=== PATIENT | female | born 1950 | race Caucasian/White ===

== ENCOUNTER 2023-03-08 09:58 | Outpatient (OUT) | payer MEDICARE, OTHER, SELFPAY ==
--- NOTE | 2023-03-08 09:59 | VEIN_ITS ---
Patient: KENNETH OGLESBY Exam Date: 03/08/2023 : 1950 Gender:F Ordering : DR MAIRA LOPEZ M.D. Admission #: [id number] Family : DR PATEL RACHELTOMASA Order #: [id number] CLICK HERE TO VIEW EXAM RADIOLOGY REPORT PROCEDURE: VC EXT VENOUS REFLUX MIKE LMTD COMPARISON: None. INDICATIONS: I83.813 Pain due to varicose veins of bilateral leg veins TECHNIQUE: Duplex imaging of the lower extremity to assess the deep and superficial venous system for the presence of deep or superficial venous incompetence and to document the location and severity of disease. The study includes evaluation of the great saphenous vein (GSV), anterior accessory saphenous vein (AASV) and small saphenous vein (SSV). Patient scanned in reverse Trendelenburg and standing. FINDINGS: RIGHT LOWER EXTREMITY: Saphenofemoral Junction Reflux: Yes 6.4mm 1.8 sec GSV: Diam (mm) Reflux/ Time (sec) Proximal Thigh 6.1 Yes 0.4 Mid Thigh 2.3 Yes 0.5 Distal Thigh 3.1 Yes 1.2 Prox Calf 1.6 Yes 0.8 Mid Calf 1.5 Yes 1.4 Saphenopopliteal Junction Reflux: 1.8mm Yes 0.5 SSV: Proximal Calf 2.0 No Mid Calf 2.2 Yes 0.6 AASV: Proximal Thigh 2.9 Yes 0.5 Mid Thigh 1.4 No Distal Thigh Thrombi: No acute or chronic thrombus. Compressibility: Normal. Flow: Minimal deep venous reflux. Preforator: Distal medial lower leg 1.9 mm without reflux. Tech Note: Incompetent varicose vein distal medial lower leg measures 2.4 mm with 0.2s reflux. Distal lateral thigh varicosity measures 2.5 mm with 0.9s reflux. LEFT LOWER EXTREMITY: Saphenofemoral Junction Reflux: Yes 6.2 mm 0.3 sec GSV: Diam (mm) Reflux/Time (sec) Proximal Thigh 5.3 Yes 0.2 Mid Thigh 3.5 Yes 0.4 Distal Thigh 2.6 Yes 1.1 Prox Calf 2.3 Yes 0.2 Mid Calf 2.5 No Saphenopopliteal Junction Relux: 2.2 mm No SSV: Proximal Calf 1.9 No Mid Calf 2.1 No AASV: Proximal Thigh 2.7 No Mid Thigh Distal Thigh Thrombi: 2.2 cm segment of non-occlusive thrombus in mid calf peroneal vein. Compressibility: Partial compression of peroneal vein. Flow: Mild deep venous reflux. Enzyme Chemist: None. Tech Note: Incompetent varicose vein mid medial lower leg measures 1.6 mm. Varicosity proximal lateral lower leg measures 3 mm with 4.9s reflux. CONCLUSION: 1. Mild bilateral great saphenous vein insufficiency, right greater than left 2. Left leg incompetent varicose vein 3. 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
--- NOTE | 2023-03-08 09:59 | VEIN_ITS ---
Patient: KENNETH OGLESBY Exam Date: 03/08/2023 : 1950 Gender:F Ordering : DR MAIRA LOPEZ M.D. Admission #: [id number] Family : JORGE ALANISHal Order #: [id number] CLICK HERE TO VIEW EXAM RADIOLOGY REPORT PROCEDURE: FACILITY [facility] [place] - OFFICE VISIT INITIAL COMPARISON: None. PROGRESS NOTES: 72-year-old female who presents with a long history of lower extremity discolored varicose veins with intermittent swelling and pain. The patient describes the pain as a 5 on scale of 1-10. The patient describes the pain as aching and heaviness with occasional throbbing and sharp pain. The pain has intensified over the course of the last 12 months. The patient's symptoms are exacerbated by prolonged sitting and standing and are partially relieved by rest leg elevation over the counter Tylenol. The patient has worn compression stockings since April of 2022 with only mild relief of her symptoms. The patient denies any signs and symptoms to suggest arterial ischemia. The patient is adopted and family history is unknown. The patient does have a 25 pack year history of smoking and continues to smoke 1/2 pack per day. The patient was counseled on smoking cessation. The patient does not drink alcohol. No illicit drug use. . Two grandchildren. No history of deep venous thrombus or pulmonary embolus. See separate history and physical for medication list. No prior treatment for varicose or spider veins. Nursing notes were reviewed. After history and physical exam I discussed at length the pathophysiology of venous hypertension and possible treatments, therapies and strategies available. We discussed at length the importance of elevating the lower extremities above the level of the heart, increased physical activity and compression stocking use. We discussed conservative therapy with continued use of compression stockings. We discussed intravenous laser ablation, micro foam chemical ablation and injection sclerotherapy. Risks benefits and alternatives were discussed Ultrasound venous reflux study performed the same day was discussed at length with the patient. The report demonstrates mild bilateral great saphenous vein venous insufficiency, right greater than left. Left leg incompetent varicose vein. 2.2 cm segment of nonocclusive chronic deep vein thrombus left mid calf peroneal vein PHYSICAL EXAM: The right leg demonstrates extensive reticular and spider veins. No subcutaneous edema, skin discoloration or active ulceration. The left leg demonstrates extensive reticular and spider veins. No subcutaneous edema, skin discoloration or active ulceration. Both thighs, legs and feet were symmetrically warm to the touch. Good posterior tibial and dorsalis pedis pulses were present bilaterally. VEIN/VC Facility NEW Comprehensive IMPRESSION: 1. Mild bilateral great saphenous vein venous insufficiency , right greater than left 2. Left incompetent lower extremity varicose veins 3. No definite lower extremity subcutaneous edema 4. No definite flow significant arterial disease 5. CEAP: C2, Ep, As, Pr PLAN: 1. Micro foam chemical ablation left leg incompetent varicose veins 2. Bilateral injection sclerotherapy of reticular and spider veins 3. Long-term use of bilateral knee or thigh-high 20-30 mm compression stockings 4. Elevated legs and increased physical activity for symptomatic relief Nurse notes, history and physical were reviewed and confirmed, see attached forms. The nurse was present throughout the physical exam and consultation Dictated by: Maira Lopez MD on 03/08/2023 at 11:11 Approved by: Maira Lopez MD on 03/08/2023 at 11:56
== END 2023-03-08 09:59 | disposition home or self-care (01) ==
LOC: VC 09:58
PROVIDERS: PCP Radiology Diagnostic Radiology; Visit Provider Radiology Diagnostic Radiology
DX: I83.813 Varicose veins of bilateral lower extremities with pain (principal)
CPT/HCPCS: 93970; G0463